=== PATIENT | male | born 2005 | race Caucasian/White ===

== ENCOUNTER 2023-01-13 09:17 | Inpatient (IN) | payer OTHER ==
[~2023-01-13] VITALS: Ht 177.8 cm; Wt 85.7 kg
[2023-01-13 11:00] VITALS: BP 112/64; PULSE 68; RESP 18; TEMP 98.4; O2SAT 98
[2023-01-13] MEDS ORDERED: ACETAMINOPHEN 325 MG TABLET PO PRN ×2 (11:30→12:00)
[2023-01-13 11:42] VITALS: BP 129/65; PULSE 65; RESP 18; TEMP 98.2
[2023-01-13] MEDS ORDERED: OxyCODONE HCL 5 MG IR TABLET PO PRN (12:00)
[2023-01-13] MEDS ORDERED: ONDANSETRON HCL 4 MG TABLET PO PRN (12:30)
[2023-01-13] MEDS ORDERED: GABAPENTIN 300 MG CAPSULE PO PRN (16:00)
[2023-01-13] MEDS ORDERED: GABAPENTIN 300 MG CAPSULE PO SCH (16:00)
[2023-01-13 20:17] VITALS: BP 105/51; PULSE 59; RESP 16; TEMP 98.2; O2SAT 99
[2023-01-13] MEDS: DOCUSATE SODIUM 100 MG CAPSULE PO PRN (21:09)
[2023-01-13] MEDS: MELATONIN 3 MG TABLET PO PRN (21:09)
[2023-01-13] MEDS: ASPIRIN 81 MG CHEWABLE TABLET PO SCH (21:09)
[2023-01-14 04:13] VITALS: O2SAT 99
[2023-01-14 06:57] LABS: BASOPHILS % (AUTO) 0.4 % (0.0-2.0); EOSINOPHILS % (AUTO) 1.3 % (1.0-6.0); HEMOGLOBIN 12.7 g/dL (12.0-16.0); LYMPHOCYTES # (AUTO) 1.5 K/uL (1.0-4.8); LYMPHOCYTES % (AUTO) 21.2 % (22.0-44.0); MEAN CORPUSCULAR HGB CONC 33.4 G/dL (31.0-37.0); MEAN CORPUSCULAR VOLUME 93 fL (80-100); MONOCYTES # (AUTO) 0.6 K/uL (0.1-1.0); MONOCYTES % (AUTO) 8.6 % (2.0-9.0); NEUTROPHILS # (AUTO) 4.9 K/uL (1.8-7.7); NEUTROPHILS % (AUTO) 68.5 % (40.0-70.0); PLATELET COUNT (AUTO) 401 K/uL (150-450); RED BLOOD CELL COUNT(AUTO) 4.09 MIL/uL (4.00-5.20); RED CELL DISTRIBUTION WIDTH 12.3 % (11.5-14.5)
[2023-01-14 07:28] LABS: ALANINE AMINOTRANSFERASE 68 U/L (12-78); ALBUMIN 3.5 g/dL (3.4-5.0); ALKALINE PHOSPHATASE 110 U/L (46-116); ANION GAP 7 mmol/L (8-16); ASPARTATE AMINOTRANSFERASE 39 U/L (15-37); BILIRUBIN,TOTAL 0.4 mg/dL (0.1-1.0); CALCIUM, TOTAL 9.7 mg/dL (8.8-10.5); CARBON DIOXIDE 30 mmol/L (22-29); CHLORIDE 104 mmol/L (98-107); CREATININE 0.85 mg/dL (0.60-1.30); GLOMERULAR FILTR. RATE CALC > 60 mL/min (>60); GLUCOSE,RANDOM 92 mg/dL (70-110); POTASSIUM 4.3 mmol/L (3.5-5.1); SODIUM SERUM 141 mmol/L (136-145); TOTAL PROTEIN, SERUM 7.4 g/dL (6.4-8.2)
[2023-01-14] MEDS: ETHYL ALCOHOL 62% ANTISEPTIC NASAL SANITIZER 0.6 ML AMPUL NASAL SCH ×2 (08:03→21:59)
[2023-01-14] MEDS: ASPIRIN 81 MG CHEWABLE TABLET PO SCH ×2 (08:04→21:59)
[2023-01-14] MEDS ORDERED: CELECOXIB 100 MG CAPSULE PO PRN (09:00)
[2023-01-14] MEDS ORDERED: CELECOXIB 100 MG CAPSULE PO SCH (09:00)
[2023-01-14 09:05] VITALS: BP 107/62; PULSE 62; RESP 18; TEMP 98.1; O2SAT 100
[2023-01-14 13:51] VITALS: O2SAT 98
[2023-01-14 21:30] VITALS: BP 115/59; PULSE 70; RESP 16; TEMP 97.8; O2SAT 99
[2023-01-14] MEDS: DOCUSATE SODIUM 100 MG CAPSULE PO PRN (21:59)
[2023-01-15 00:17] VITALS: O2SAT 99
[2023-01-15] MEDS: ETHYL ALCOHOL 62% ANTISEPTIC NASAL SANITIZER 0.6 ML AMPUL NASAL SCH ×2 (08:11→21:06)
[2023-01-15] MEDS: ASPIRIN 81 MG CHEWABLE TABLET PO SCH ×2 (08:11→21:07)
[2023-01-15 09:54] VITALS: BP 119/60; PULSE 73; RESP 18; TEMP 98.7; O2SAT 99
[2023-01-15 10:52] VITALS: O2SAT 99
[2023-01-15 19:30] VITALS: BP 124/60; PULSE 69; RESP 19; TEMP 98.1; O2SAT 98
[2023-01-15] MEDS: DOCUSATE SODIUM 100 MG CAPSULE PO PRN (21:06)
[2023-01-15] MEDS: MELATONIN 3 MG TABLET PO PRN (21:06)
[2023-01-15 21:31] VITALS: O2SAT 98
[2023-01-16] MEDS: ETHYL ALCOHOL 62% ANTISEPTIC NASAL SANITIZER 0.6 ML AMPUL NASAL SCH ×2 (07:42→20:58)
[2023-01-16] MEDS: DOCUSATE SODIUM 100 MG CAPSULE PO SCH ×2 (07:43→20:58)
[2023-01-16] MEDS: ASPIRIN 81 MG CHEWABLE TABLET PO SCH ×2 (07:43→20:59)
[2023-01-16 10:29] VITALS: O2SAT 98
[2023-01-16 10:33] VITALS: BP 118/69; PULSE 64; RESP 18; TEMP 98; O2SAT 100
[2023-01-16 16:05] VITALS: BP 124/64; PULSE 78; RESP 18; TEMP 98.2; O2SAT 100
[2023-01-16 19:30] VITALS: BP 119/61; PULSE 73; RESP 20; TEMP 98.7; O2SAT 100
[2023-01-16 20:00] VITALS: O2SAT 100
[2023-01-16] MEDS: MELATONIN 3 MG TABLET PO PRN (20:59)
[2023-01-17] MEDS: ETHYL ALCOHOL 62% ANTISEPTIC NASAL SANITIZER 0.6 ML AMPUL NASAL SCH ×2 (08:50→22:10)
[2023-01-17] MEDS: DOCUSATE SODIUM 100 MG CAPSULE PO SCH ×2 (08:50→22:10)
[2023-01-17] MEDS: ASPIRIN 81 MG CHEWABLE TABLET PO SCH ×2 (08:51→22:10)
[2023-01-17 09:00] VITALS: BP 117/61; PULSE 63; RESP 18; TEMP 98.1; O2SAT 98
[2023-01-17 21:00] VITALS: BP 124/64; PULSE 71; RESP 18; TEMP 98.3; O2SAT 99
[2023-01-17] MEDS: MELATONIN 3 MG TABLET PO PRN (22:10)
[2023-01-18 07:30] VITALS: BP 115/59; PULSE 50; RESP 19; TEMP 98; O2SAT 98
[2023-01-18] MEDS: MULTIVITAMINS WITH MINERALS, THERAPEUTIC TABLET PO SCH (07:56)
[2023-01-18] MEDS: ETHYL ALCOHOL 62% ANTISEPTIC NASAL SANITIZER 0.6 ML AMPUL NASAL SCH ×2 (07:56→21:07)
[2023-01-18] MEDS: DOCUSATE SODIUM 100 MG CAPSULE PO SCH ×2 (07:57→21:07)
[2023-01-18] MEDS: ASPIRIN 81 MG CHEWABLE TABLET PO SCH ×2 (07:57→21:07)
[2023-01-18 08:15] VITALS: PULSE 63; O2SAT 99
[2023-01-18 20:00] VITALS: BP 120/61; PULSE 67; RESP 20; TEMP 98.3; O2SAT 98
[2023-01-18] MEDS: MELATONIN 3 MG TABLET PO PRN (21:07)
[2023-01-19] MEDS: ASPIRIN 81 MG CHEWABLE TABLET PO SCH ×2 (07:46→20:59)
[2023-01-19] MEDS: DOCUSATE SODIUM 100 MG CAPSULE PO SCH ×2 (07:46→20:59)
[2023-01-19] MEDS: ETHYL ALCOHOL 62% ANTISEPTIC NASAL SANITIZER 0.6 ML AMPUL NASAL SCH ×2 (07:46→20:59)
[2023-01-19] MEDS: MULTIVITAMINS WITH MINERALS, THERAPEUTIC TABLET PO SCH (07:46)
[2023-01-19 08:01] VITALS: BP 106/56; PULSE 74; RESP 18; TEMP 98; O2SAT 98
[2023-01-19 20:00] VITALS: BP 114/50; PULSE 66; RESP 20; TEMP 98.5; O2SAT 98
[2023-01-19] MEDS: MELATONIN 3 MG TABLET PO PRN (21:00)
[2023-01-20 08:05] VITALS: BP 105/67; PULSE 65; RESP 17; TEMP 98.6; O2SAT 100
[2023-01-20] MEDS: DOCUSATE SODIUM 100 MG CAPSULE PO SCH ×2 (08:30→20:29)
[2023-01-20] MEDS: ETHYL ALCOHOL 62% ANTISEPTIC NASAL SANITIZER 0.6 ML AMPUL NASAL SCH ×2 (08:30→20:29)
[2023-01-20] MEDS: ASPIRIN 81 MG CHEWABLE TABLET PO SCH ×2 (08:30→20:30)
[2023-01-20] MEDS: MULTIVITAMINS WITH MINERALS, THERAPEUTIC TABLET PO SCH (08:30)
[2023-01-20 20:00] VITALS: BP 123/58; PULSE 69; RESP 18; TEMP 98.6; O2SAT 100
[2023-01-20] MEDS: MELATONIN 3 MG TABLET PO PRN (20:29)
[2023-01-21] MEDS: ETHYL ALCOHOL 62% ANTISEPTIC NASAL SANITIZER 0.6 ML AMPUL NASAL SCH (08:20)
[2023-01-21] MEDS: ASPIRIN 81 MG CHEWABLE TABLET PO SCH (08:20)
[2023-01-21] MEDS: DOCUSATE SODIUM 100 MG CAPSULE PO SCH (08:21)
[2023-01-21] MEDS: MULTIVITAMINS WITH MINERALS, THERAPEUTIC TABLET PO SCH (08:21)
[2023-01-21] MEDS ORDERED: ASPI81 PO (09:14)
[2023-01-21] MEDS ORDERED: ACET325T51 PO ×2 (09:14→10:05)
[2023-01-21] MEDS ORDERED: DOCU-385 PO (09:14)
[2023-01-21] MEDS ORDERED: MULT-1239 PO (09:14)
[2023-01-21 09:22] VITALS: BP 116/63; PULSE 62; RESP 18; TEMP 98.1; O2SAT 98
== END 2023-01-21 09:30 | disposition home or self-care (01) | DRG 562 ==
LOC: EDSEX 11:00 → 2WR 11:00
PROVIDERS: ADMIT Physical Medicine & Rehabilitation; ATTEND Physical Medicine & Rehabilitation
DX: S52.121A Displaced fracture of head of right radius, initial encounter for closed fracture (principal); S32.425A Nondisplaced fracture of posterior wall of left acetabulum, initial encounter for closed fracture; S09.90XA Unspecified injury of head, initial encounter; S62.501A Fracture of unspecified phalanx of right thumb, initial encounter for closed fracture; K59.00 Constipation, unspecified; S92.314A Nondisplaced fracture of first metatarsal bone, right foot, initial encounter for closed fracture; Z77.22 Contact with and (suspected) exposure to environmental tobacco smoke (acute) (chronic); R26.9 Unspecified abnormalities of gait and mobility; V29.99XA Rider (driver) (passenger) of other motorcycle injured in unspecified traffic accident, initial encounter; Z82.49 Family history of ischemic heart disease and other diseases of the circulatory system; Z79.899 Other long term (current) drug therapy; Y93.89 Activity, other specified; Y99.8 Other external cause status; Y92.89 Other specified places as the place of occurrence of the external cause; Z79.82 Long term (current) use of aspirin
CPT/HCPCS: 80053; 85025; 87081; 92523; 93971; 97110; 97116; 97150; 97162; 97166; 97530; 97535; 99366